=== PATIENT | female | born 1960 | race Caucasian/White ===

== ENCOUNTER 2017-02-20 16:53 | Emergency (ER) | payer OTHER ==
[~2017-02-20] VITALS: Ht 160 cm; Wt 73.2 kg
[2017-02-20 17:04] VITALS: BP 119/75
[2017-02-20] MEDS ORDERED: FLUORESCEIN OPHTHALMIC 1 MG STRIP ONE (17:23)
[2017-02-20] MEDS ORDERED: PROPARACAINE OPHTH 0.5%, 15ML ONE (17:24)
[2017-02-20] MEDS ORDERED: PROPARACAINE OPHTH 0.5%, 15ML EACHEYE ONE (18:00)
[2017-02-20] MEDS ORDERED: FLUORESCEIN OPHTHALMIC 1 MG STRIP EACHEYE ONE (18:00)
== END 2017-02-20 19:09 | disposition home or self-care (01) ==
LOC: ED 19:02
DX: T15.02XA Foreign body in cornea, left eye, initial encounter (principal)
CPT/HCPCS: 65220; 99284

== ENCOUNTER 2020-10-28 16:25 | Emergency (ER) | payer OTHER ==
[~2020-10-28] VITALS: Ht 160 cm; Wt 67.0 kg
[2020-10-28] MEDS ORDERED: HYDR-3237 PO (16:54)
[2020-10-28] MEDS ORDERED: BUPR-86 PO (16:54)
[2020-10-28] MEDS ORDERED: ESCI5TAB7 PO (16:54)
--- NOTE | 2020-10-28 16:55 | NUR ---
Report received from KARLA Velasquez and renetta nunez.
[2020-10-28] MEDS ORDERED: KETOROLAC 30 MG/1 ML IVPush ONE (17:30)
[2020-10-28] MEDS ORDERED: KETOROLAC 30 MG/1 ML ONE (18:04)
--- NOTE | 2020-10-28 18:10 | NUR ---
Toradol given as ordered for pain at this time. VSS.
[2020-10-28 18:17] LABS: TROPONIN I < 0.015 ng/mL (0.000-0.045)
--- NOTE | 2020-10-28 18:30 | NUR ---
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 Pain now 06/11.
[2020-10-28 19:08] VITALS: BP 133/77
== END 2020-10-28 19:10 | disposition home or self-care (01) ==
LOC: ED 17:35
DX: R07.89 Other chest pain (principal); R94.31 Abnormal electrocardiogram [ECG] [EKG]
CPT/HCPCS: 36415; 71045; 84484; 93005; 99285